=== PATIENT | female | born 1950 | race Caucasian/White ===

== ENCOUNTER 2022-04-19 10:02 | Outpatient (CLI) | payer MEDICARE, SELFPAY ==
--- NOTE | 2022-04-19 10:15 | CRLHL7_ITS ---
For Patients: As a result of the Cures Act, medical imaging exams and procedure reports are released immediately into your electronic medical record. You may view this report before your referring provider. If you have questions, please contact your health care provider. BILATERAL DIGITAL SCREENING MAMMOGRAM WITH COMPUTER-AIDED DETECTION WITH TOMOSYNTHESIS, 04/19/2022 CLINICAL HISTORY: Routine screening exam. COMPARISON: 04/16/2021, 02/22/2020, 11/25/2018, 07/12/2014 TECHNIQUE: Digital mammogram in CC and MLO projections including computer-aided detection (CAD) and Tomosynthesis. BREAST COMPOSITION: There are scattered areas of fibroglandular density FINDINGS: RIGHT Breast: Microlobulated/spiculated lesion within the RIGHT axilla. LEFT Breast: No suspicious findings. IMPRESSION: RIGHT breast asymmetry/mass. RECOMMENDATIONS: RIGHT breast ultrasound recommended. BI-RADS Category 0: Incomplete: Need Additional Imaging Evaluation and/or Prior Mammograms for Comparison The [facility] will contact the patient for follow-up. Dictated by Holger Clayton MD @ 04/19/2022 10:45:46 AM PT/Dictated by: Holger Clayton MD @ 04/19/2022 10:45:00 AM (Electronically Signed)
== END 2022-04-19 10:03 | disposition home or self-care (01) ==
LOC: MAMMO 10:03
PROVIDERS: PCP Family Medicine; Visit Provider Family Medicine
DX: Z12.31 Encounter for screening mammogram for malignant neoplasm of breast (principal); N63.10 Unspecified lump in the right breast, unspecified quadrant
CPT/HCPCS: 77063; 77067

== ENCOUNTER 2022-04-24 10:52 | Outpatient (CLI) | payer MEDICARE, SELFPAY ==
--- NOTE | 2022-04-24 11:15 | CRLHL7_ITS ---
For Patients: As a result of the Century Cures Act, medical imaging exams and procedure reports are released immediately into your electronic medical record. You may view this report before your referring provider. If you have questions, please contact your health care provider. RIGHT BREAST ULTRASOUND CLINICAL HISTORY: RIGHT breast mass/asymmetry. COMPARISON: 04/19/2022. TECHNIQUE: Real-time ultrasound imaging of RIGHT breast with imaging documentation. FINDINGS: Targeted sonogram to the RIGHT axillary tail performed, upper outer quadrant, 10 o`clock 16 cm from the nipple corresponding to the area of concern. In this location there is a taller than wide angular hypoechoic and shadowing solid mass measuring 9 x 7 x 11 millimeters. A normal-appearing RIGHT axillary lymph node is present. IMPRESSION: Suspicious mass RIGHT breast upper outer quadrant 10 o`clock 16 cm from the nipple measuring 9 x 7 x 11 millimeters. RECOMMENDATIONS: Ultrasound-guided core needle biopsy. Results and recommendations were discussed with the patient at the time of the exam. BI-RADS Category 4: Suspicious A lay language report of this examination will be provided to the patient. Dictated by Holger Clayton MD @ 04/24/2022 12:11:43 PM manuelito/Dictated by: Holger Clayton MD @ 04/24/2022 12:11:00 PM (Electronically Signed)
== END 2022-04-24 10:53 | disposition home or self-care (01) ==
LOC: US 10:53
PROVIDERS: PCP Family Medicine; Visit Provider Family Medicine
DX: N63.10 Unspecified lump in the right breast, unspecified quadrant (principal); R92.8 Other abnormal and inconclusive findings on diagnostic imaging of breast
CPT/HCPCS: 76642

== ENCOUNTER 2022-04-26 08:23 | Outpatient (CLI) | payer MEDICARE, SELFPAY ==
--- NOTE | 2022-04-26 08:15 | CRLHL7_ITS ---
For Patients: As a result of the Century Cures Act, medical imaging exams and procedure reports are released immediately into your electronic medical record. You may view this report before your referring provider. If you have questions, please contact your health care provider. Final Report: ULTRASOUND-GUIDED BREAST BIOPSY AND POST-BIOPSY DIGITAL MAMMOGRAM FOR BIOPSY MARKER PLACEMENT CLINICAL HISTORY: Indeterminate lesion RIGHT axillary tail. COMPARISON STUDIES: 04/24/2022 TECHNIQUE: Real-time ultrasound with image documentation was used for targeting the breast lesion. Core biopsy specimens were obtained using an automated gun with a 18- gauge biopsy needle. Post-biopsy CC and ML digital mammograms were obtained to document position of the biopsy marker. CONSENT and TIME OUT: The procedure, risks, and alternatives were explained to the patient and a consent was signed. [place] Protocol was followed including pre-procedure verification that relevant information/documentation was available, reviewed and properly matched to the patient; consent accurate and complete; and equipment and supplies available. Time Out was conducted just prior to starting procedure to verify the four required elements: patient identity, correct side/site marked (if applicable), procedure, relevant images/results properly labeled and displayed (if applicable). PROCEDURE: The patient was positioned supine on the ultrasound table. The breast was prepped with ChloraPrep. 8 cc 1% lidocaine used for local anesthesia. Core samples were obtained. A sterile metal biopsy clip was placed percutaneously to vani the lesion position within the breast. The specimens were placed in 10% formalin and sent to the pathology department. Pressure was held on the biopsy site until all bleeding subsided. The skin incision was closed with Steri- Strips. An ice pack was positioned over the biopsy site. Post-biopsy instructions were reviewed with the patient, and a written copy was given to her. LATERALITY: RIGHT breast. LESION: Hypoechoic mass measuring 9 x 7 x 11 millimeters at 10 o`clock 16 cm from the nipple. SUSPICION FOR MALIGNANCY: High. NUMBER OF SAMPLES: 5. BIOPSY CLIP SHAPE: Coil. PROXIMITY OF CLIP TO TARGET: Clip is within the lesion. IMPRESSION: Ultrasound-guided breast biopsy. When the pathology report is available, an addendum to this report will be made. ACR not applicable Dictated by Holger Clayton MD @ 04/26/2022 10:19:39 AM jj/Dictated by: Holger Clayton MD @ 04/26/2022 10:19:00 AM ----- ADDENDUM ----- Pathology consistent with grade 2/3 invasive ductal carcinoma. This is concordant. Appropriate action recommended. Dictated by Holger Clayton MD @ Apr 26 2022 10:19AM Signed by:?Holger Clayton MD @04/26/2022 11:56:46 AM (Electronic Signature)
--- NOTE | 2022-04-26 08:45 | CRLHL7_ITS ---
For Patients: As a result of the Century Cures Act, medical imaging exams and procedure reports are released immediately into your electronic medical record. You may view this report before your referring provider. If you have questions, please contact your health care provider. PLEASE SEE ULTRASOUND-GUIDED RIGHT BREAST BIOPSY PERFORMED SAME DAY CRL:[email or web address] lane/Dictated by: Holger Clayton MD @ 04/26/2022 10:19:00 AM (Electronically Signed)
== END 2022-04-26 08:24 | disposition home or self-care (01) ==
LOC: US 08:24
PROVIDERS: PCP Family Medicine; Visit Provider Family Medicine
DX: N63.10 Unspecified lump in the right breast, unspecified quadrant (principal); C50.911 Malignant neoplasm of unspecified site of right female breast; R92.8 Other abnormal and inconclusive findings on diagnostic imaging of breast
CPT/HCPCS: 19083; 77065; 88305; 88341; 88342; 88360; 88361; A4648; A4649; G0279; J2001

== ENCOUNTER 2022-05-16 09:13 | Outpatient (CLI) | payer MEDICARE, SELFPAY ==
--- NOTE | 2022-05-16 09:15 | CRLHL7_ITS ---
For Patients: As a result of the 21st Century Cures Act, medical imaging exams and procedure reports are released immediately into your electronic medical record. You may view this report before your referring provider. If you have questions, please contact your health care provider. BILATERAL BREAST MRI WITHOUT AND WITH GADOLINIUM CLINICAL HISTORY: 72-year-old woman with newly diagnosed RIGHT breast invasive ductal carcinoma. Ultrasound-guided biopsy of a 1.1 cm hypoechoic mass in the upper outer RIGHT breast. INDICATION FOR BREAST MRI: Staging of newly diagnosed breast cancer and screening of contralateral breast. Regional lymph nodes will also be assessed. COMPARISON STUDIES: Mammogram 04/26/2022, ultrasound 04/24/2022, ultrasound biopsy 04/26/2022. CONTRAST: 15 cc Dotarem. TECHNIQUE: The patient was positioned prone using a breast coil. Multiple imaging sequences were obtained using 1-1.5 mm thick slices with no gap. The image sequences include T2-weighted STIR in the axial plane, T1-weighted nonfat-saturated gradient echo in the axial plane, pre- and post-contrast T1-weighted FLASH 3D with fat suppression in the axial plane, and T1-weighted FLASH high-resolution 3D with fat suppression in the sagittal plane. Image post-processing was performed on a [employer] workstation. Complex 3D rendering including maximum intensity projections (MIPS) and volumetric renderings were obtained to optimize visualization of the extent of pathology and relationship to the nipple, skin, and chest wall. This aids in determining feasibility of breast conservation surgery. Subtraction, multiplanar reconstruction, mean curve determination, and angiogenesis mapping were also performed. The study was technically adequate. FINDINGS: Amount of Fibroglandular Tissue: Scattered fibroglandular tissue. Breast Background Enhancement: Mild. RIGHT Breast: Irregular mass enhancement posterior upper outer RIGHT breast measuring approximately 1.3 x 1.4 x 0.9 cm, corresponding to the biopsy-proven malignancy. There is a clip associated with this enhancement. No suspicious enhancement elsewhere RIGHT breast. LEFT Breast: There is a circumscribed oval mildy enhancing mass in the posterior inferior LEFT breast approximately 6 o`clock 14 cm from the nipple. Lymph Nodes: Axillary lymph nodes grossly normal. No lymphadenopathy. IMPRESSIONS AND RECOMMENDATIONS: 1. Irregular mass enhancement posterior upper outer RIGHT breast measuring 1.4 cm in greatest dimension, correlates with the biopsy-proven malignancy. No evidence for malignancy elsewhere RIGHT breast. 2. Oval mass enhancement inferior LEFT breast 6 o`clock 14 cm from the nipple. Ultrasound evaluation is recommended. 3. Axillary lymph nodes appear preserved. The [facility] will contact the patient for follow-up. BI-RADS: BI-RADS Category 0: Incomplete - Need Additional Imaging Evaluation Cristal Collazo M.D. Breast/Body Radiologist [email or web address] DARWIN/Dictated by: Cristal Collazo MD @ 05/17/2022 11:57:00 AM (Electronically Signed)
== END 2022-05-16 09:14 | disposition home or self-care (01) ==
PROVIDERS: PCP Family Medicine; Visit Provider Surgery
DX: C50.911 Malignant neoplasm of unspecified site of right female breast (principal); N63.10 Unspecified lump in the right breast, unspecified quadrant; N63.20 Unspecified lump in the left breast, unspecified quadrant
CPT/HCPCS: 77049; A9575

== ENCOUNTER 2022-05-31 09:54 | Outpatient (CLI) | payer MEDICARE, SELFPAY ==
--- NOTE | 2022-05-31 10:15 | CRLHL7_ITS ---
For Patients: As a result of the Century Cures Act, medical imaging exams and procedure reports are released immediately into your electronic medical record. You may view this report before your referring provider. If you have questions, please contact your health care provider. ULTRASOUND-GUIDED BREAST BIOPSY AND POST-BIOPSY DIGITAL MAMMOGRAM FOR BIOPSY MARKER PLACEMENT CLINICAL HISTORY: RIGHT breast cancer. Enhancing lesion LEFT breast MRI. COMPARISON STUDIES: MRI 05/16/2022. TECHNIQUE: Real-time ultrasound with image documentation was used for targeting the breast lesion. Core biopsy specimens were obtained using an automated gun with a 18-gauge biopsy needle. Post-biopsy CC and ML digital mammograms were obtained to document position of the biopsy marker. CONSENT and TIME OUT: The procedure, risks, and alternatives were explained to the patient and a consent was signed. [place] Protocol was followed including pre-procedure verification that relevant information/documentation was available, reviewed and properly matched to the patient; consent accurate and complete; and equipment and supplies available. Time Out was conducted just prior to starting procedure to verify the four required elements: patient identity, correct side/site marked (if applicable), procedure, relevant images/results properly labeled and displayed (if applicable). PROCEDURE: The patient was positioned supine on the ultrasound table. The breast was prepped with ChloraPrep. 10 cc 1 percent lidocaine used for local anesthesia. Core samples were obtained. A sterile metal biopsy clip was placed percutaneously to vani the lesion position within the breast. The specimens were placed in 10% formalin and sent to the pathology department. Pressure was held on the biopsy site until all bleeding subsided. The skin incision was closed with Steri-Strips. An ice pack was positioned over the biopsy site. Post-biopsy instructions were reviewed with the patient, and a written copy was given to her. LATERALITY: LEFT breast. LESION: Hypoechoic circumscribed solid nodule posterior depth left breast 5 o`clock 14 cm from the nipple corresponding to the MRI measuring 1.3 x 0.8 cm. SUSPICION FOR MALIGNANCY: Low, probable fibroadenoma. NUMBER OF SAMPLES: 5. BIOPSY CLIP SHAPE: Coil. PROXIMITY OF CLIP TO TARGET: Within the lesion. IMPRESSION: Ultrasound-guided breast biopsy. When the pathology report is available, an addendum to this report will be made. ACR not applicable Dictated by Holger Clayton MD @ 05/31/2022 12:15:20 PM jj/Dictated by: Holger Clayton MD @ 05/31/2022 12:15:00 PM ----- ADDENDUM ----- Addendum: Pathology consistent with benign fibroadenoma. No evidence of malignancy. This is concordant. Dictated by Holger Clayton MD @ May 31 2022 12:15PM Signed by:?Holger Clayton MD @05/31/2022 1:04:40 PM (Electronically Signed)
--- NOTE | 2022-05-31 10:45 | CRLHL7_ITS ---
For Patients: As a result of the Century Cures Act, medical imaging exams and procedure reports are released immediately into your electronic medical record. You may view this report before your referring provider. If you have questions, please contact your health care provider. PLEASE SEE ULTRASOUND-GUIDED LEFT BREAST BIOPSY PERFORMED SAME DAY CRL:[email or web address] lane/Dictated by: Holger Clayton MD @ 05/31/2022 12:15:00 PM (Electronically Signed)
== END 2022-05-31 09:55 | disposition home or self-care (01) ==
LOC: US 09:54
PROVIDERS: PCP Family Medicine; Visit Provider Family Medicine
DX: N63.23 Unspecified lump in the left breast, lower outer quadrant (principal); D24.2 Benign neoplasm of left breast; C50.911 Malignant neoplasm of unspecified site of right female breast; Z17.0 Estrogen receptor positive status [ER+]
CPT/HCPCS: 19083; 77065; 88305; A4648; A4649

== ENCOUNTER 2022-06-25 09:41 | Outpatient (CLI) | payer MEDICARE, SELFPAY ==
[2022-06-25 14:06] LABS: Chloride* 99 mmol/L (96-114); Potassium* 4.2 mmol/L (3.6-5.1); Sodium* 136 mmol/L (135-149)
[2022-06-25 14:09] LABS: Blood Urea Nitrogen* 21 mg/dL (7-30); Calcium* 9.8 mg/dL (8.4-10.6); Carbon Dioxide* 30 mmol/L (20-32); Creatinine* 0.9 mg/dL (0.5-1.5); Estimated Glomerular Filt Rate 67 ml/min; Glucose* 141 mg/dL (60-115)
== END 2022-06-25 09:42 | disposition home or self-care (01) ==
LOC: NFLDREF 09:42
PROVIDERS: PCP Family Medicine; Visit Provider Family Medicine
DX: Z01.818 Encounter for other preprocedural examination (principal)
CPT/HCPCS: 80048

== ENCOUNTER 2022-06-27 09:11 | Day surgery (SDC) | payer MEDICARE, SELFPAY ==
[2022-06-27] VITALS (22 sets, daily range): BP systolic 123–172; BP diastolic 51–94; PULSE 57–75; RESP 10–16; TEMP 36.1–36.8; O2SAT 92–98; BMI 36.1
[2022-06-27] MEDS: LACTATED RINGERS 1000 ML 1,000 ML 100 ML IV ×2 (10:00→11:57)
[2022-06-27 10:01] LABS: Basophils Absolute Auto 0.03 K/uL (0.00-0.30); Basophils Percent Auto 0.5 % (0.0-3.0); Eosinophils Absolute Auto 0.18 K/uL (0.00-0.50); Eosinophils Percent Auto 2.8 % (0.0-7.0); Hematocrit 42.8 % (33.0-51.0); Hemoglobin* 14.6 gm/dL (12.0-16.0); Immature Granulocytes Abs Auto 0.03 K/uL (0.00-0.30); Lymphocytes Absolute Auto 2.55 K/uL (0.90-2.90); Lymphocytes Percent Auto 39.8 % (20-44); Mean Corpuscular HGB Conc 34 gm/dL (32-36); Mean Corpuscular Hemoglobin 33 pg (26-34); Mean Corpuscular Volume 97 fL (80-100); Monocytes Percent Auto 6.7 % (0.0-11.0); Neutrophils Absolute Auto 3.18 K/uL (1.7-7.0); Neutrophils Percent Auto 49.7 % (42.0-72.0); Platelet Count* 258 K/uL (140-440); RDW Coefficient of Variation % 12.1 % (11.5-15.5); Red Blood Count 4.42 m/uL (4.00-5.20)
[2022-06-27] MEDS: ETHYL CHLORIDE 1 APPLICATION 1 APPLIC TOPICAL (10:02)
[2022-06-27] MEDS: SODIUM CHLORIDE 0.9 % (FLUSH) 10 ML SYRINGE IVF (10:02)
[2022-06-27 10:04] LABS: Slide Review Reflex No
--- NOTE | 2022-06-27 10:30 | CRLHL7_ITS ---
For Patients: As a result of the Century Cures Act, medical imaging exams and procedure reports are released immediately into your electronic medical record. You may view this report before your referring provider. If you have questions, please contact your health care provider. HISTORY: 72-year-old female. Right breast cancer. TECHNIQUE: 500 microcuries of [id number] sulfur colloid was injected in the right breast for sentinel lymph node localization. Images were not obtained. Dictated by Balwinder Jonas MD @ 06/27/2022 10:54:56 AM (Electronically Signed)
[2022-06-27] MEDS: ISOSULFAN BLUE 5 ML VIAL 3 ML INJECTION (11:35)
--- NOTE | 2022-06-27 11:44 | P.NB_ITS ---
Nerve Block Nerve Block Date Seen: 06/27/22 Type of block requested by surgeon for post-operative analgesia: intercostal (PECS 1&2) and intercostal add on Side: bilateral Time out performed: Yes Verification of patient name: Yes Verification of date of : Yes Site marking: site marked Name of person performing procedure: Zaid Continuous monitoring Was continuous monitoring of O2 sat, B/P, quality assurance monitor, recorded every 15 minutes?: Yes Procedure Checklist: sterile prep, needles and gloves Ultrasound guided. Images saved: Yes Medications given in 5ml increments after negative aspiration: Marcaine %: 0.25 mL: 30 Needle gauge: 20 and Exparel mL: 20 Needle gauge: 20 Patient tolerated procedure well: Yes Block Charges Block Charge (with Pro Fee): Intercostal Nerve Block (Bilateral) Use of Ultrasound Machine for Block: Yes- US Guidance/pain block
[2022-06-27] MEDS: CEFAZOLIN 2 GM INJ IVP (11:45)
--- NOTE | 2022-06-27 12:21 | SUR.OPER ---
PATIENT QUESTIONS ANSWERED SATISFACTORILY PREOPERATIVELY.? PATIENT BROUGHT TO OR #3 PER CART.? Patient positioned supine on OR #3 bed. The perioperative?team supported arms bilaterally on arm boards.? Final approval of positioning by surgeon.? PRIOR TO ISOSULFAN BLUE INJECTION A TIME OUT WAS PERFORMED AT 11:34.
--- NOTE | 2022-06-27 12:32 | W.ANESCHARGE ---
Anesthesia Charges Start Date/Time Anesthesia Start Date: 06/27/22 Anesthesia Start Time: 11:13 Stop Date/Time Anesthesia Stop Date: 06/27/22 Summary Emergency: No Extremes of Age: Over 68-CPT [id number]
--- NOTE | 2022-06-27 14:09 | SUR.OPER ---
PT. FAMILY UPDATED BY PHONE CALL AT 13:26.
--- NOTE | 2022-06-27 14:55 | P.GSOP_ITS ---
Operative Note Date of procedure: 06/27/22 Type of Procedure: 1. Bilateral mastectomy 2. Right axillary sentinel lymph node biopsy Procedure Description: After discussing the risks and benefits of the procedure, the patient signed informed consent.? The operative site was marked. 40 Minutes prior to the procedure, I injected 500 microcuries of [id number] sulfur colloid into the dermis just above the nipple- areolar complex for the sentinel lymph node biopsy. This was massaged in place to promote lymphatic drainage. . The patient was brought to the operating room and placed on the operating table in supine position.? Care was taken to pad the patient's pressure points.?? The patient was then intubated by anesthesia.?3 ml Isosulfan Blue dye was then injected into the dermis just above the nipple-areolar complex and massaged in place. This was done 10 minutes before the incision.? The operative site was then prepped and draped in the usual sterile fashion.? A time-out was then performed. The planned oblique elliptical incisions were then marked on each breast to ensure symmetry. We began on the patient's right. The incision was then created using a skin knife. I created skin flaps by dissecting in the avascular plane between the subcutaneous fat and breast tissue. These were created superiorly to the clavicle, medially to the lateral border of the sternum, inferiorly to include the inframammary fold and superior aspect of the rectus sheath and finally laterally to the latissimus muscle. This was done with cautery. During the lateral dissection, the area that appeared to be the tumor was encountered. This seemed quite adherent to the skin, however I was able to find a plane that appeared free of tumor. I did place a marking stitch on the skin flap where this area was as well as on the breast itself so that pathology would be able to identify it to determine if the margin was negative. Small bleeding vessels were cauterized or ligated with suture when necessary. Once this was done, the breast was taken off the chest wall using cautery with care to include the pectoral fascia. The axillary fat was encountered. I divided the breast tissue and placed a single marking stitch at the superior aspect for identification. I then performed the sentinel lymph node biopsy through the mastectomy incision. Using the Neoprobe, I identified a sentinel lymph node. It was blue. It was dissected out using electrocautery. Clips were placed on any visible lymphatic pedicles. The lymph node had an ex vivo reading of 1600 and was sent to pathology for frozen section as sentinel lymph node number 1. The probe was vcítor jose guadalupe back into the axilla and there was still a strong signal. An additional blue node was identified. This was again dissected out using cautery. A reading of 1400 was noted. This was sent for frozen section as [place] Lymph node number 2. There was still signal in the axilla and two additional nodes with a signal but which were not blue were identified and dissected out. These measured 200 and 800. After these were removed and sent as sentinel node number 3 and 4, there was noted to be no further signal with the neoprobe and no further blue lymph nodes. Hemostasis appeared excellent at the end of this portion of the procedure. We then changed gloves and instruments and turned our attention to the left side. The incision was then created using a skin knife. I created skin flaps by dissecting in the avascular plane between the subcutaneous fat and breast tissue. These were created superiorly to the clavicle, medially to the lateral border of the sternum, inferiorly to include the inframammary fold and superior aspect of the rectus sheath and finally laterally to the latissimus muscle. This was done with cautery. Small bleeding vessels were cauterized or ligated with suture when necessary. Once this was done, the breast was taken off the chest wall using cautery with care to include the pectoral fascia. A stitch was placed marking the superior aspect of the specimen and this was sent to pathology. Hemostasis appeared excellent. A 15 hebrew Luis Alfredo drain was then placed in the chest wound and secured in place with Nylon suture. The skin was then closed with 3-0 Vicryl dermal and 4-0 Monocryl running subcuticular suture. By this time, the pathology returned. The margins on the breast were grossly negative, however by only a 2 mm margin. For this reason, I elected to remove a portion of the skin overlying the tumor. At this time the sentinel lymph nodes were reported as negative on frozen section. I created a V-shaped incision on the superior aspect lateral flap toward the axilla to encompass the area where the tumor had abutted (marked with a suture). The specimen was sent to pathology as re-excision lateral margin with a stitch marking both the area of the tumor and the anterior aspect of the specimen for orientation. Once this was done, a 15 Sami Luis Alfredo drain was then placed in the wound bed. This was secured in place with nylon suture. The skin was then closed with 3 0 Vicryl dermal and 4 0 Monocryl running subcuticular suture. Sterile dressings were applied. The patient was then woken and transported to the recovery area in stable co ndition. ? The patient tolerated the procedure well. Findings: 1) Close margins on right breast tumor which abutted the skin. Margin of skin on the lateral aspect of the breast was reexcised 2) [place] lymph nodes x4 negative. Anesthesia: GETA Surgeon: Brittny Mcgraw MD Estimated blood loss (mL): 50 Condition: stable Disposition: PACU
--- NOTE | 2022-06-27 15:13 | W.ANESCHARGE ---
Anesthesia Charges Start Date/Time Anesthesia Start Date: 06/27/22 Anesthesia Start Time: 11:13 Stop Date/Time Anesthesia Stop Date: 06/27/22 Anesthesia Stop Time: 15:10 Summary Emergency: No Extremes of Age: Over 68-CPT 65005
--- NOTE | 2022-06-27 15:16 | W.ANESCHARGE ---
Anesthesia Charges Start Date/Time Anesthesia Start Date: 06/27/22 Anesthesia Start Time: 11:13 Stop Date/Time Anesthesia Stop Date: 06/27/22 Anesthesia Stop Time: 15:10 Summary Emergency: No Extremes of Age: Over 68-CPT 17542
[2022-06-27] MEDS: LACTATED RINGERS 1000 ML 1,000 ML 75 ML IV (15:45)
[2022-06-27] MEDS: HYDROCODONE-ACETAMIN 5-325 MG 1 TAB PO (19:49)
[2022-06-27] MEDS: PRAVASTATIN SODIUM 20 MG TABLET PO (20:44)
--- NOTE | 2022-06-27 22:51 | PC.NURSE ---
End of Shift note: Pt. up to floor at 1545. Dressing to breast is C/D/I. Bilateral NASIM drain is patent, draining serosanguineous fluid. Pt. alert and oriented x4, pleasant and cooperative. Pt. rated pain 0/10 until 1949 pain was 4/10 1 tab of PRN [place] administered w/relief. Pt. tolerating ice chips, water, food. Pt. denies N/V/SOB and pt. is afebrile. Pt. met 6 hr goals, voided x2. Pt. has bilateral Teds and bilateral calf SCD's. Pt. encouraged to use IO. Pt. saline blessing, MD Anam azul nurse to saline lock.
[2022-06-28] MEDS: HYDROCODONE-ACETAMIN 5-325 MG 1 TAB PO (02:55)
[2022-06-28 03:00] VITALS: BP 121/59; PULSE 60; RESP 16; TEMP 36.7; O2SAT 96
--- NOTE | 2022-06-28 06:06 | PC.NURSE ---
259 END OF SHIFT NOTE: PT IS PLEASANT, CALM AND COOPERATIVE. AMBULATES WITHIN ROOM INDEPENDENTLY. VSS ON RA; AFEBRILE. VOIDING BLUE/GREEN URINE. A&Ox4. RATES BREAST PAIN 4/10 WITH MOVEMENT; RELIEF FROM PRN PAIN MED ADMINISTRATION (SEE MAR).?BILATERAL NASIM DRAINS PATENT WITH 40MLS OF SANGUINEOUS DRAINAGE THIS SHIFT.
[2022-06-28 07:00] VITALS: BP 168/83; PULSE 64; RESP 12; TEMP 37.2; O2SAT 94
[2022-06-28 07:35] LABS: Hemoglobin* 12.7 gm/dL (12.0-16.0)
--- NOTE | 2022-06-28 09:11 | PM.DS1 ---
DS: Providers Provider Date Seen: 06/28/22 Primary care physician: Otoniel Pichardo MD Attending Physician on discharge: Brittny Mcgraw MD Date of Discharge: 06/28/22 DS: Diagnosis Discharge Diagnosis (1) Breast cancer, right: Status: Acute Problem details: Right breast invasive ductal carcinoma, ERPR positive, HER2 negative (2) Simple obesity: Status: Acute (3) Health care directive on file: Status: Acute (4) Hypertension: Status: Acute (5) Hyperlipidemia: Status: Acute DS: Summary Hospital Course Hospital Course: The patient is a 72-year-old female who was admitted after bilateral mastectomy with right axillary sentinel node biopsy. She did well overnight. Pain was well controlled. She was deemed safe for discharge home on postop day 1. Time Spent with Patient Time attestation: Total time spent providing and/or coordinating discharge services: Exam Narrative: Exam Narrative: General: No acute distress CV: Regular rate and rhythm Respiratory: Breathing nonlabored on room air Chest: Incisions without erythema. Some ecchymosis noted on skin flaps are. Serosanguineous fluid in the drains. 90 mL total out between the 2 drinks. Const: Vital Signs, click to edit/add: Vital Signs - 24 hr 06/27/22 09:43 06/27/22 15:08 06/27/22 15:15 Temperature 97.1 F L 97.8 F Pulse Rate 63 69 68 Pulse Rate [Right Pulse Oximeter] Respiratory Rate 16 12 12 Blood Pressure 172/94 H 138/66 147/70 H Blood Pressure [Le ft Arm] Blood Pressure [Ri ght Calf] Pulse Oximetry 95 97 97 Oxygen Delivery Me thod Room Air Room Air Room Air 06/27/22 15:20 06/27/22 15:25 06/27/22 15:30 Temperature Pulse Rate 70 67 65 Pulse Rate [Right Pulse Oximeter] Respiratory Rate 10 L 12 16 Blood Pressure 148/68 H 149/73 H 154/74 H Blood Pressure [Le ft Arm] Blood Pressure [Ri ght Calf] Pulse Oximetry 95 94 94 Oxygen Delivery Me thod Room Air Room Air Room Air 06/27/22 15:35 06/27/22 15:40 06/27/22 15:51 Temperature 96.9 F L Pulse Rate 68 66 Pulse Rate [Right Pulse Oximeter] 58 L Respiratory Rate 14 14 16 Blood Pressure 157/73 H 163/74 H Blood Pressure [Le ft Arm] 145/67 H Blood Pressure [Ri ght Calf] Pulse Oximetry 96 95 98 Oxygen Delivery Me thod Room Air Room Air Room Air 06/27/22 15:45 06/27/22 16:00 06/27/22 16:15 Temperature 96.9 F L 97.6 F 97.6 F Pulse Rate 58 L Pulse Rate [Right Pulse Oximeter] 64 63 Respiratory Rate 16 16 16 Blood Pressure Blood Pressure [Le ft Arm] 146/68 H Blood Pressure [Ri ght Calf] 145/67 H 146/68 H 155/72 H Pulse Oximetry 95 96 Oxygen Delivery Me thod Room Air Room Air Room Air 06/27/22 16:30 06/27/22 16:45 06/27/22 17:15 Temperature 97.6 F 97.6 F 97.6 F Pulse Rate Pulse Rate [Right Pulse Oximeter] 66 63 66 Respiratory Rate 16 16 16 Blood Pressure Blood Pressure [Le ft Arm] Blood Pressure [Ri ght Calf] 156/82 H 167/81 H 166/85 H Pulse Oximetry 93 95 95 Oxygen Delivery Me thod Room Air Room Air Room Air 06/27/22 17:45 06/27/22 18:00 06/27/22 19:11 Temperature 97.6 F 97.6 F 98.0 F Pulse Rate Pulse Rate [Right Pulse Oximeter] 70 74 74 Respiratory Rate 16 16 16 Blood Pressure Blood Pressure [Le ft Arm] Blood Pressure [Ri ght Calf] 170/88 H 159/81 H 138/72 Pulse Oximetry 92 94 94 Oxygen Delivery Me thod Room Air Room Air Room Air 06/27/22 19:00 06/27/22 20:00 06/27/22 21:00 Temperature 98.0 F 98.0 F 98.0 F Pulse Rate Pulse Rate [Right Pulse Oximeter] 74 75 75 Respiratory Rate 16 16 16 Blood Pressure Blood Pressure [Le ft Arm] Blood Pressure [Ri ght Calf] 138/72 150/82 H 147/81 H Pulse Oximetry 94 93 94 Oxygen Delivery Me thod Room Air Room Air Room Air 06/27/22 23:00 06/27/22 23:00 06/28/22 03:00 Temperature 98.3 F 98.0 F Pulse Rate Pulse Rate [Right Pulse Oximeter] 57 L 57 L 60 Respiratory Rate 16 16 16 Blood Pressure Blood Pressure [Le ft Arm] Blood Pressure [Ri ght Calf] 123/51 L 121/59 L Pulse Oximetry 94 96 Oxygen Delivery Me thod Room Air Room Air DS: Data Data Completed and Pending Labs on day of discharge: Labs from last 24 hours 06/28/22 06/27/22 06:56 09:39 WBC 6.40 RBC 4.42 Hgb 12.7 14.6 Hct 42.8 MCV 97 MCH 33 MCHC 34 RDW Coeff of Arleen 12.1 Plt Count 258 Neut % (Auto) 49.7 Lymph % (Auto) 39.8 [place] % (Auto) 6.7 Eos % (Auto) 2.8 Baso % (Auto) 0.5 Neut # (Auto) 3.18 Lymph # (Auto) 2.55 [place] # (Auto) 0.40 Eos # (Auto) 0.18 Baso # (Auto) 0.03 Abs Immat Gran (auto) 0.03 Discharge Plan Discharge Disposition: Home, Self-Care Discharging Surgeon: Brittny Mcgraw Follow-Up Appointment: Jul 08 Prescriptions: New hydrocodone-acetaminophen 5-325 mg Tablet 1 tab PO Q6H PRN (Reason: Pain) Qty: 20 0RF Continued metoprolol succinate 25 mg tablet extended release 24 hr 25 mg PO DAILY losartan 100 mg tablet 100 mg PO DAILY triamterene-hydrochlorothiazid 37.5-25 mg capsule 1 cap PO DAILY multivitamin Tablet 1 tab PO DAILY amlodipine 2.5 mg tablet 2.5 mg PO QDAY Qty: 30 2RF Hold Instructions: START AFTER SURGERY pravastatin 20 mg tablet 20 mg PO HS Activity Level: No strenuous activity Activity Detail: No lifting > 20 lbs x 4 weeks Discharge Diet: Regular Patient Instructions: Surgical Site Infections (DC), Mastectomy (GEN) Additional Instructions: Wound care: Your sutures are under the skin and will dissolve over time. Leave steri strips (white bandages) over incisions until they fall off (or remove after 7 days). OK to shower tomorrow but avoid bathing, soaking or swimming for 2 weeks. Pat the incisions dry. No need to wash or scrub the area. Cover drain sites with saran wrap during shower. Apply ice to the area as needed for swelling. It is also OK to use a heating pad if this provides more comfort to you. Empty and record drain output daily. Bring this information with you to your appointment to Dr. Mcgraw Rewrap chest with KRISTINE bandage until drains are removed. Pain control: You were prescribed a pain medication. This medication contains acetaminophen (Tylenol). If you are taking your prescribed pain pills 4 times daily, do not take additional acetaminophen. As your pain improves, you can try taking acetaminophen instead of the prescribed pain pill. It is ok to take Ibuprofen or Naproxen (per directions on packaging). This medication helps with inflammation and swelling. Take an [id number]-[id number] stool softener while you are taking prescribed pain medications to help alleviate constipation. I recommend Senna and/or Colace. Take as directed on package. If you have not had a bowel movement in 3 days, try taking Miralax as directed on the package. All of these are available over the counter. Follow-up Follow up with Dr. Mcgraw on Jul 08. Please call if you are experiencing severe pain, nausea, vomiting, difficulty urinating, fever or have not had bowel movement in 4 days after surgery. Forms: Work/Release Restrictions Follow-up: Otoniel Pichardo MD [Primary Care Provider] - Discharge Orders: Discharge Order (Routine); Ordered 06/28/22 Ordered By: Brittny Mcgraw
[2022-06-28] MEDS: TRIAMTERENE-HCTZ 37.5-25 MG TB 1 TAB PO (10:26)
[2022-06-28] MEDS: LOSARTAN POTASSIUM 50 MG TABLET 100 MG PO (10:26)
[2022-06-28] MEDS: METOPROLOL SUCCINATE (XL) 25 MG TAB PO (10:27)
--- NOTE | 2022-06-28 15:25 | PC.NURSE ---
care time [id number] pt this shift up in chair finishing breakfast upon arrival. Pt denies pain in bilat surgical sites. CMS intact, small amount of serous fluid in bilat NASIM drains. DC'd for home at 1130. Pt and spouse educated on how to strip and drain fluid from NASIM drains. Taught to hold the proximal end with one hand and pull distally with the other, keeping pressure on the tubing so fluid runs into bulb while also preventing pulling on the incision site. Taught how to measure each side and record separately for follow up. Educated on keeping hands clean while performing dressing changes and managing NASIM drains. Pt and spouse performed technique with nurse observing and giving direction. Discharge work gone over with pt and spouse, all questions and concerns answered. Pt ambulated out in stable condition.
== END 2022-06-28 11:30 | disposition home or self-care (01) ==
LOC: OR 09:12 → MEDSURG 09:17
PROVIDERS: PCP Family Medicine; Visit Provider Surgery
PROC: (CPT 19303; principal; 2022-06-27 11:30)
DX: C50.911 Malignant neoplasm of unspecified site of right female breast (principal); Z17.0 Estrogen receptor positive status [ER+]; D24.2 Benign neoplasm of left breast; E78.5 Hyperlipidemia, unspecified; E66.9 Obesity, unspecified; I10 Essential (primary) hypertension
CPT/HCPCS: 19303; 38500; 36415; 38792; 400; 404; 64420; 76942; 85018; 85025; 99100; A9270; A9541; J0690; J2250; J2704; J3010; J7120

== ENCOUNTER 2022-08-08 13:28 | Outpatient (CLI) | payer MEDICARE, SELFPAY ==
--- NOTE | 2022-08-08 13:30 | CRLHL7_ITS ---
For Patients: As a result of the Century Cures Act, medical imaging exams and procedure reports are released immediately into your electronic medical record. You may view this report before your referring provider. If you have questions, please contact your health care provider. DXA BONE MINERAL DENSITY STUDY Reason for exam: Breast cancer. Current height (in): 65.5. Weight (lb): 204. Menopause age: 50. Ethnicity: White 1. Have you had a previous hip or vertebral fracture? No. 2. Have you had any fractures during your adult life which did not result from significant trauma (e.g., auto accident)? No. 3. Did either of your parents have a hip fracture? No. 4. Do you smoke? No. 5. Have you ever taken Glucocorticoids? No. 6. Do you have rheumatoid arthritis? No. 7. Do you have secondary osteoporosis? No. 8. Do you drink 3 or more alcoholic drinks per day? No. 9. Are you being treated for osteoporosis? No. 10. Have you ever taken any of the following medications: Actonel, Evista, Fosamax, Miacalcin, Reclast, Boniva, Forteo, HRT (i.e., estrogen/hormone therapy), Protelos, Prolia, Vitamin D, Calcium, other ??? please specify. ANSWER: Yes, vitamin D and calcium. 11. Do you have any of the following medical conditions: Anorexia or bulimia, asthma or emphysema, end stage renal disease, hyperparathyroidism, any seizure disorders, cancer, inflammatory bowel diseases, hysterectomy, other ??? please specify. ANSWER: Yes, cancer. 12. What was your maximum height (inches)? 66. 13. Do you perform weight bearing exercise regularly? No. 14. Do you regularly consume dairy products? Yes. 15. Do you drink caffeinated beverages? Yes. If female: 16. At what age did your period start? 13. 17. Are you premenopausal? No. 18. How many full-term pregnancies have you had? 3. 19. Have you ever missed your period for more than 6 months in a row (not including or menopause)? No. TECHNIQUE: Bone mineral density study was performed using the [employer]. FINDINGS: The results of the study expressed as bone mineral density (BMD) are as follows: Lumbar spine L1 to L4: BMD: 1.096 g/cm2. T-score: 0.4. Z-score: 2.8 Neck Left: BMD: 0.789 g/cm2. T-score: -0.5. Z-score: 1.5 Right: BMD: 0.778 g/cm2. T-score: -0.6. Z-score: 1.4 Total Left: BMD: 0.955 g/cm2. T-score: 0.1. Z-score: 1.8 Right: BMD: 0.879 g/cm2. T-score: -0.5. Z-score: 1.2 IMPRESSION: Normal bone density. *Comparison exams done prior to 02/2020 were performed on different unit, [employer]. COMPARISON: Compared with scan of 07/22/2013, the bone mineral density has increased by 1.8 percent at the spine and increased by 4.8 percent at the hip. Holger Clayton M.D. Diagnostic Radiologist [email or web address] BRIELLE/ariana lane/Dictated by: Holger Clayton MD @ 08/09/2022 12:22:00 PM (Electronically Signed)
== END 2022-08-08 13:29 | disposition home or self-care (01) ==
LOC: RAD 13:28
PROVIDERS: PCP Family Medicine; Visit Provider Internal Medicine Hematology & Oncology
DX: C50.911 Malignant neoplasm of unspecified site of right female breast (principal); Z79.811 Long term (current) use of aromatase inhibitors
CPT/HCPCS: 77080

== ENCOUNTER 2022-08-29 07:38 | Outpatient (CLI) | payer MEDICARE, SELFPAY ==
[2022-08-29 10:37] LABS: Chloride* 102 mmol/L (96-114)
[2022-08-29 10:38] LABS: Potassium* 4.2 mmol/L (3.6-5.1); Sodium* 137 mmol/L (135-149)
[2022-08-29 10:40] LABS: Aspartate Amino Transferase* 25 U/L (12-35); Bilirubin Total* 1.2 mg/dL (0.1-1.5); Blood Urea Nitrogen* 21 mg/dL (7-30); Carbon Dioxide* 30 mmol/L (20-32); Cholesterol* 134 mg/dL (90-199); Creatinine* 0.9 mg/dL (0.5-1.5); Estimated Glomerular Filt Rate 67 ml/min; Total Protein* 6.5 g/dL (6.0-8.3)
[2022-08-29 10:41] LABS: Alanine Aminotransferase* 26 U/L (4-35); Alkaline Phosphatase* 73 U/L (40-150); Calcium* 9.5 mg/dL (8.4-10.6); Glucose* 103 mg/dL (60-115); HDL Cholesterol* 39 mg/dL (>=50); LDL Cholesterol Calculated 50 mg/dL (<100); Triglycerides* 224 mg/dL (40-149)
== END 2022-08-29 07:39 | disposition home or self-care (01) ==
PROVIDERS: PCP Family Medicine; Visit Provider Family Medicine
DX: E78.5 Hyperlipidemia, unspecified (principal); I10 Essential (primary) hypertension
CPT/HCPCS: 80053; 80061

== ENCOUNTER 2022-08-30 09:10 | Outpatient (CLI) | payer MEDICARE, SELFPAY | END 2022-08-30 09:11 | disposition home or self-care (01) | PROVIDERS: PCP Family Medicine; Visit Provider Internal Medicine | DX: Z12.11 Encounter for screening for malignant neoplasm of colon (principal); K63.5 Polyp of colon; K57.30 Diverticulosis of large intestine without perforation or abscess without bleeding; Z86.010 Personal history of colon polyps | CPT/HCPCS: 45380; 88305; J2250; J3010 ==

== ENCOUNTER 2022-10-24 09:46 | Outpatient (RCR) | payer MEDICARE, SELFPAY ==
--- NOTE | 2022-07-23 11:12 | PC.NURSE ---
Called patient with the results of her Oncotype testing. Patient informed that her score was 12. Explained that based on this score, she would not benefit from chemotherapy. Per Dr. Golden, patient can begin endocrine therapy. Patient informed that an Rx for Anastrozole will be called to her pharmacy by Jenny Luevano APRN. Side effects reviewed. Reiterated with patient that she will take this medication daily for a minimum of 5 years. Patient will have her baseline Dexa scan 08/08. 3 month follow up scheduled. Patient encouraged to call with any questions or concerns.
--- NOTE | 2022-08-16 12:14 | ONC.NURNOTE ---
Order for post mastectomy supplies faxed to [facility] in [place] at the request of patient.
--- NOTE | 2022-08-23 11:52 | ONC.NURNOTE ---
Call to patient in follow up to new start Anastrozole. Patient states she is tolerating it well. She does note intermittent hot flashes, 1-2 per day but states it is manageable. Patient denies any other questions or concerns. Patient will see her oncology team in October.
--- NOTE | 2022-10-24 11:09 | ONC.NURNOTE ---
Accompanied pt to 3 mo f/u with Leticia Aldridge PA-C. Pt tolerating Anastrazole well; Leticia to order refills. RTC 3 months, 01/20 @1400.
== END 2023-01-14 23:59 | disposition home or self-care (01) ==
LOC: CCIC 09:46
PROVIDERS: PCP Family Medicine; Visit Provider Physician Assistant
DX: C50.911 Malignant neoplasm of unspecified site of right female breast (principal); Z17.0 Estrogen receptor positive status [ER+]; Z79.811 Long term (current) use of aromatase inhibitors; Z90.13 Acquired absence of bilateral breasts and nipples
CPT/HCPCS: 99202; 99204; 99212; 99214; 99215

== ENCOUNTER 2023-01-06 09:46 | Outpatient (CLI) | payer MEDICARE, SELFPAY | END 2023-01-06 09:47 | disposition home or self-care (01) | LOC: NFLDREF 09:47 | PROVIDERS: PCP Family Medicine; Visit Provider Family Medicine | DX: E78.5 Hyperlipidemia, unspecified (principal); I10 Essential (primary) hypertension | CPT/HCPCS: 80053; 80061 ==

== ENCOUNTER 2023-04-21 13:00 | Outpatient (RCR) | payer MEDICARE, SELFPAY | END 2023-07-19 23:59 | disposition home or self-care (01) | LOC: CCIC 13:00 | PROVIDERS: PCP Family Medicine; Visit Provider Internal Medicine Hematology & Oncology | DX: C50.911 Malignant neoplasm of unspecified site of right female breast (principal); Z17.0 Estrogen receptor positive status [ER+]; Z79.811 Long term (current) use of aromatase inhibitors; R23.2 Flushing; T50.905A Adverse effect of unspecified drugs, medicaments and biological substances, initial encounter; Z90.13 Acquired absence of bilateral breasts and nipples | CPT/HCPCS: 99212; 99214 ==

== ENCOUNTER 2023-06-17 10:15 | Outpatient (RCR) | payer MEDICARE, SELFPAY ==
--- NOTE | 2022-06-20 17:36 | OT.OPLE ---
OT Outpatient Lymphedema Eval OT Outpatient Lymphedema Eval Start: 06/19/22 17:42 Freq: Status: Active Protocol: Document 06/20/22 13:48 AMB (Rec: 06/20/22 17:34 AMB [id number]) E-signed By Deann Lyon, OTR/L, CLT, [employer] OT Outpatient Evaluation Details Type Type Eval Complexity Low OT OP Lymphedema Evaluation Insurance Information Insurance Information Medicare B Current Condition/Medical Diagnosis Referring Provider Dr Mcgraw Treatment Diagnosis Breast Cancer / Lymphedema Surveillance Precautions Lifting Restrictions,Range of Motion Medical Contraindications HTN,CA Other Contraindications Hyperlipidemia, perforated nasal septum, serrated adenoma of colon Current Work Status Current Work Status Retired Subjective Subjective Pt states she has decided to go forward with bilateral mastectomy with SLN biopsy without reconstruction. Surgery will be on 06/27/22. Pt states she is a little nervous but, not too bad Medical History Medical History Obesity,HTN Medical History Comments Pt was recently diagnosed with right breast invasive ductal carcinoma, discovered on a regular screening mammogram. Pt has had prior breast biopsies, one on the right in the and one on the left in the early . Pt states her mother had breast cancer at the age of 64 and is now 102yo living in a care center. Surgical History Surgical History Pt has PMH of RUE RCR x 2 ( 2001 and 2013) and eyelid surgery x 1 3 years ago. Medications Medications See chart Family History Family History of Lymphedema No Living Situation Current Living Situation Home With Spouse Or SO Exercise History Does Patient Exercise Regularly Yes Exercise Comments Pt has a [place] [employer] machine, does not currently use regularly, understands that she needs to increase her exercise levels. Pain Pain No Loss of Function/Strength/Mobility Loss Of Function/Strength/Mobility No Compression History Does Patient Currently Wear Compression No During Daytime Does Patient Currently Wear Compression No At Night Current Swelling (Location/Pitting/Texture) Pitting Scale: 0 = No pitting 1+ Tissue returns to normal almost immediately 2+ Tissue returns after 15-30 seconds 3+ Tissue returns after 1-1/2 minutes 4+ Tissue returns after 2-3 minutes N/A Tissue no longer pits due to induration Tissue texture: Soft or indurated Type of Swelling Post Surgery/Traumatic Edema Assessment Assessment Pt presents pre-operatively for initiation of lymphedema surveillance program. Following her mastectomy with SLN biopsy, pt will be at risk for lymphedema in her RUE / upper quadrant due to LN removal. Pt may need radiation which would add to her risk. Pt will benefit from skilled OT intervention for pt education, monitoring / surveillance in order to provide early detection / intervention to assure best positive outcomes with fewer lymphedema related complications if the need arises. Pt demonstrates good interest and motivation to be an active participant in her care. Pt asked multiple pertinent questions and received satisfactory answers. Pt was given contact info and encouraged to reach out if more questions arise. Problem List Problem List Limited Knowledge of Lymphedema Treatment/Condition /Precautions,Limited Knowledge of Skin Care & Infection Precautions,Significant Risk For Infection For Lymphedema Related Complications Patient Goals Patient Goals 1. Pt will demonstrate a general understanding of the lymphatic system, s/s of lymphedema, treatment of lymphedema, implications of untreated lymphedema, s/s of infection and the correlation of infection related to lymphedema. 3 months 2. Pt will be compliant with quarterly assessments for lymphedema surveillance in order to obtain early intervention with best outcomes if needed. 12 months Treatment Plan Treatment Plan Evaluation,Edema Control, Manual Therapy,Wound Care/Scar Management,Therapeutic Exercise,Therapeutic Activities,Self-Care/Home Management Expected Frequency Quarterly Expected Duration 12 months Certification Certification I Certify That: Therapy Services Provided, Therapy Plan Established, Therapy Plan Reviewed Recertification Information Recertification Information Initial Certification Date 06/20/22 Recertification Due Date 09/19/22 Reasons to Continue Skilled Therapy Pt initiated OT today for 12 month lymphedema surveillance program. Continued Plan of Care and Interventions MT, TA, TE, self care, edema control Provider Signature Shows Agreement With POC & Medical Necessity Physician Comment/Change Comment or Changes Physician NPI Number #
--- NOTE | 2022-06-24 13:14 | PT.OPEX ---
PT [place] Outpatient Eval PT [facility] Outpatient Eval Start: 06/24/22 08:57 Freq: Status: Active Protocol: Document 06/24/22 08:57 ENM (Rec: 06/24/22 12:50 ENM [id number]) E-signed By Apple Whalen, DPT Physical Therapy Outpatient Evaluation Insurance Information Recert Due Date 09/16/22 Insurance Name Medicare B Medical Diagnosis bilateral masectomy Treating Diagnosis impaired posture, decreased shoulder ROM Referring MD Mcgraw Subjective Subjective Patient presents for pre-op appointment prior to bilateral masectomy with SLND 06/27/22. She was diagnosed with right breast invasive ductal carcinoma in May. Found to be ERPR positive, HER2 negative. Plan right now is to do chemo after. She used to go the club 3x a week for swimming. Has a history for previous right rotator cuff repairs. Does have difficulties reaching behind the back at baseline. PMHx: 2 previous right rotator cuff repairs, HTN Pain Comments no pain Current Work Status Retired Objective Other/Pertinent Objective AROM standing: Shoulder flexion L 154 R 140 abduction L 165 R 154 Scaption L 154 R 146 IR L T8 R T11 ER base of skull, with slightly less ER on the R compared to L PROM flexion more tightness on R Posture: flat back posture, scapular protraction Joint mobility: posterior glide of GH more limited on R compared to L inferior glide of GH normal mobility B Scapular control: good scapular engagement in standing Functional Test Performed & Score SPADI: 4/130 pain 1/50 2% disability 3/80 3.75% Assessment Assessment/Impression Patient presents to PT pre- operatively for planned Breast Cancer surgery to include bilateral mastectomy and planned SLNB without reconstruction on 06/27/22. Found to have right breast invasive ductal carcinoma ERPR positive and HER2 negative. Plan is for patient to have chemo as well. Assessment today included baseline UE ROM, postural, and joint mobility measurements which are to be compared to measurements retaken 4 weeks post-surgery. At that time, any reduced movement, decline in function, or postural issues will be addressed with skilled care and new goals will be established. Education was given today regarding post-operative signs of infection, axillary cording, seroma formation, and home program to be performed within the first 3-4 weeks post-operatively focusing on UE mobility within surgical restrictions. Primary Functional Limitations reaching behind the back Plan of Care Rehabilitation Potential Good Physical Therapy Goals Goals pre op 1. Pt demonstrates awareness of post-operative movement restrictions and HEP to facilitate lymphatic regeneration and reduce the risk of seroma formation, axillary web syndrome and lymphedema while ensuring shoulder joint mobility. Coordination/Communication With Referral Source Treatment Plan/Direct Interventions Joint Mobilization,Manual Therapy,Neuromuscular Re-ed, Self-Care/Home Management, Therapeutic Activities, Therapeutic Exercises Frequency/Duration 2x a week for 6 visits, reassessing frequency based off patient progress and medical plan of care Patient Will Be Discharged From Therapy Completion of LTG(s), Independent w/HEP Evaluation Billing Untimed Code Treatment Minutes 16 Complexity Low Certification Information Initial Certification Date 06/24/22 Ending Certification Date 09/16/22 Provider Signature Shows Agreement With POC & Medical Necessity Physician Signature & Date Requested Please Sign/Date Here Physician Comment/Change : Physician NPI Number #
--- NOTE | 2022-10-23 09:45 | OT.OPLDN ---
OT Outpatient Lymphedema Daily Note OT Outpatient Lymphedema Daily Note Start: 06/19/22 17:42 Freq: Status: Active Protocol: Document 10/23/22 08:22 AMB (Rec: 10/23/22 09:44 AMB [id number]) E-signed By Deann Lyon, OTR/L, CLT, IN PROCESSING INSTRUCTOR OT OP Lymphedema Daily/Progress Note Note Type Note Type Daily,Recert/Progress Note Visit Number 3 Insurance Information Insurance Information Medicare B Current Condition/Medical Diagnosis Referring Provider Dr Mcgraw Treatment Diagnosis Breast Cancer / Lymphedema Surveillance Date Of Onset 06/[address] removed from Right Medical Contraindications HTN,CA Other Contraindications Hyperlipidemia, perforated nasal septum, serrated adenoma of colon Subjective Subjective Pt returns for lymphedema surveillance following her mastectomy with LN biopsy x 4 on the RUE, all negative. Initiated Anastrozole in July. Pt feels she is doing well, no concerns about lymphedema. Pt states she has really been watching her skin, sure to moisturize. Pt states she hasn't been very motivated to get back into her exercise routine, generally likes to use her [place] [employer] and swim / exercise at the pool. States she lost both her mother and mother in law in Jul/Aug and it has been stressful, hoping to get back to exercise soon. Circumferential Measurements Upper Extremity Left Upper Extremity MCP 19.5 Palm 20.2 Wrist 17.0 10cm 24.6 20cm 30.5 30cm 34.0 40cm 41.5 Total 187.3 Right Upper Extremity MCP 19.8 Palm 20.4 Wrist 17.0 10cm 24.8 20cm 30.5 30cm 34.5 40cm 41.5 Total 188.5 Treatment Therapeutic Activities Review of risk reduction practices and discussed the importance of regular exercise to reduce risk for lymphedema and other health benefits. Re-assessment of skin and limb circumference. Therapeutic Activity Minutes (minutes) 20 Assessment Pt presents 3 months p/o from B mastectomy for lymphedema surveillance program. Pt does not demonstrate any s/s or concerns for lymphedema. Pt is working on getting back into a regular exercise routine. Pt's skin condition is excellent, incisions are well healed, no adherence. Pt demonstrates full AROM in BUE and 5/5 muscle strength, she does not feel limited in ADLs or IADLs. Problem List Limited Knowledge of Lymphedema Treatment/Condition /Precautions,Limited Knowledge of Skin Care & Infection Precautions,Significant Risk For Infection For Lymphedema Related Complications Patient Goals Patient Goals 1. Pt will demonstrate a general understanding of the lymphatic system, s/s of lymphedema, treatment of lymphedema, implications of untreated lymphedema, s/s of infection and the correlation of infection related to lymphedema. 3 months 2. Pt will be compliant with quarterly assessments for lymphedema surveillance in order to obtain early intervention with best outcomes if needed. 12 months Treatment Plan Treatment Plan Evaluation,Edema Control, Manual Therapy,Wound Care/Scar Management,Therapeutic Exercise,Therapeutic Activities,Self-Care/Home Management Other Treatment Plan Pt will continue with lymphedema surveillance program with re-assessment qu Expected Frequency Quarterly Expected Duration 12 months Expected Duration Comments Re-assess in 3 months. Treatment Minutes Timed Treatment Minutes 20 Total Timed Treatment Minutes 20 Occupational Therapy Billing Units Billing Units Therapeutic Activities 1 Certification Certification I Certify That: Therapy Services Provided, Therapy Plan Established, Therapy Plan Reviewed Recertification Information Recertification Information Initial Certification Date 06/20/22 Recertification Start Date 09/19/22 Recertification Due Date 01/21/23 Reasons to Continue Skilled Therapy Pt is participating in a lymphedema surveillance program and will benefit from continued surveillance to provide early intervention and treatment in the event that she develops lymphedema in order to achieve best outcomes as well as continued pt education on risk reduction practices. Continued Plan of Care and Interventions MT, TA, TE, self care, edema control Provider Signature Shows Agreement With POC & Medical Necessity Physician Comment/Change Comment or Changes Physician NPI Number #
--- NOTE | 2023-03-26 12:54 | OT.OPLDN ---
OT Outpatient Lymphedema Daily Note OT Outpatient Lymphedema Daily Note Start: 06/19/22 17:42 Freq: Status: Active Protocol: Document 03/26/23 09:18 AMB (Rec: 03/26/23 09:55 AMB [id number]) E-signed By Deann Lyon, OTR/L, CLT, PALLIATIVE CARE COORDINATOR OT OP Lymphedema Daily/Progress Note Note Type Note Type Daily,Recert/Progress Note Visit Number [id number] Insurance Information Insurance Information Medicare B Current Condition/Medical Diagnosis Referring Provider Dr Mcgraw Treatment Diagnosis Breast Cancer / Lymphedema Surveillance Date Of Onset 06/27 Precautions Lifting Restrictions,Range of Motion Other Precautions LN removed from Right Medical Contraindications HTN,CA Other Contraindications Hyperlipidemia, perforated nasal septum, serrated adenoma of colon Subjective Subjective Pt continues to do well, she is staying active in her garden, still has not returned to exercising on her [place] [employer], but states she's so busy in the summer, hoping to get back to it in the fall / winter. Pt is preparing for a long road trip to [place], states she and her will be camping, visiting family and making many other stops. Pt denies any concerns for lymphedema, states she monitors daily. Home Program Compliant To Home Program Yes Home Program Specifics Self monitoring, staying active, working on increasing her exercise Circumferential Measurements Upper Extremity Left Upper Extremity MCP 19.2 Palm 20.3 Wrist 16.9 10cm 24.7 20cm 30.4 30cm 34.3 40cm 41.0 Total 186.8 Right Upper Extremity MCP 19.5 Palm 20.2 Wrist 17.0 10cm 25.0 20cm 30.2 30cm 34.5 40cm 41.0 Total 187.4 Treatment Self Care Review of skin care and infection education, review of s/s of lymphedema, s/s of infection and actions if suspecting either. Self Care Activity Minutes (minutes) 7 Therapeutic Activities Review of risk reduction practices and discussed the importance of regular exercise to reduce risk for lymphedema and other health benefits. Re-assessment of skin and limb circumference. Therapeutic Activity Minutes (minutes) 15 Assessment Pt presents 9 months p/o from B mastectomy for lymphedema surveillance program. Pt does not demonstrate any s/s or concerns for lymphedema. Pt continues to work getting back into a regular exercise routine. She has been working outside in her garden, feels she does a lot of walking and UE exercise with tending to garden. Pt's skin condition is excellent, no visible lesions, cuts, or scrapes, no s/s of infection or swelling. BUE limb circumferences have actually reduced by .5cm each since last measure. Pt is participating in a lymphedema surveillance program and will benefit from continued surveillance to provide early intervention and treatment in the event that she develops lymphedema in order to achieve best outcomes as well as continued pt education on risk reduction practices. Problem List Limited Knowledge of Lymphedema Treatment/Condition /Precautions,Limited Knowledge of Skin Care & Infection Precautions,Significant Risk For Infection For Lymphedema Related Complications Patient Goals Patient Goals 1. Pt will demonstrate a general understanding of the lymphatic system, s/s of lymphedema, treatment of lymphedema, implications of untreated lymphedema, s/s of infection and the correlation of infection related to lymphedema. 3 months 2. Pt will be compliant with quarterly assessments for lymphedema surveillance in order to obtain early intervention with best outcomes if needed. 12 months Treatment Plan Treatment Plan Evaluation,Edema Control, Manual Therapy,Wound Care/Scar Management,Therapeutic Exercise,Therapeutic Activities,Self-Care/Home Management Other Treatment Plan Pt will continue with lymphedema surveillance program with re-assessment qu Expected Frequency Quarterly Expected Duration 12 months Expected Duration Comments Re-assess in 3 months. Daily Plan of Care Continue Per POC Treatment Minutes Timed Treatment Minutes 22 Total Timed Treatment Minutes 22 Occupational Therapy Billing Units Billing Units Self Care/Home Management 1 Certification Certification I Certify That: Therapy Services Provided, Therapy Plan Established, Therapy Plan Reviewed Recertification Information Recertification Information Initial Certification Date 06/20/22 Recertification Start Date 01/21/23 Recertification Due Date 04/23/23 Reasons to Continue Skilled Therapy Pt is participating in a lymphedema surveillance program and will benefit from continued surveillance to provide early intervention and treatment in the event that she develops lymphedema in order to achieve best outcomes as well as continued pt education on risk reduction practices. Continued Plan of Care and Interventions MT, TA, TE, self care, edema control Provider Signature Shows Agreement With POC & Medical Necessity Physician Comment/Change Comment or Changes Physician NPI Number #
== END 2023-06-17 12:00 | disposition home or self-care (01) ==
PROVIDERS: PCP Family Medicine; Visit Provider Surgery
DX: I89.0 Lymphedema, not elsewhere classified (principal); Z51.89 Encounter for other specified aftercare
CPT/HCPCS: 97110; 97140; 97161; 97164; 97165; 97530; 97535

== ENCOUNTER 2023-08-28 08:03 | Outpatient (CLI) | payer MEDICARE, SELFPAY | END 2023-08-28 08:04 | disposition home or self-care (01) | LOC: NFLDREF 15:32 | PROVIDERS: PCP Family Medicine; Referring Provider Family Medicine; Visit Provider Family Medicine | DX: E78.2 Mixed hyperlipidemia (principal) | CPT/HCPCS: 80053; 80061 ==

== ENCOUNTER 2023-11-27 12:50 | Outpatient (RCR) | payer MEDICARE, SELFPAY | END 2024-01-20 23:59 | disposition home or self-care (01) | LOC: CCIC 12:50 | PROVIDERS: PCP Family Medicine; Visit Provider Physician Assistant | DX: C50.911 Malignant neoplasm of unspecified site of right female breast (principal); Z17.0 Estrogen receptor positive status [ER+]; Z79.811 Long term (current) use of aromatase inhibitors; R23.2 Flushing; G47.00 Insomnia, unspecified; Z90.13 Acquired absence of bilateral breasts and nipples | CPT/HCPCS: 99212; 99214; G0463 ==

== ENCOUNTER 2023-12-17 10:38 | Outpatient (CLI) | payer MEDICARE, SELFPAY ==
--- OUTSIDE RECORDS SUMMARY | 2023-12-17 10:40 | XMS_ITS | Clinical Summary ---
Author Name Unknown Organization [facility] Address [place], [place] [address] Care Team Providers Care Black Jack Dealer Name Role Phone Otoniel Pichardo MD Primary Care Provider [phone] Allergies No known active allergies Medications Medication Sig Dispensed Refills Start Date End Date Status lisinopril (PRINIVIL; ZESTRIL) 40 mg tablet Take 40 mg by mouth once daily. Active triamterene-hydrochlor othiazide, as half 75-50 mg, (MAXZIDE) 37.5-25 mg tab Take 1 half tablet by mouth every morning. Active Active Problems Problem Noted Date Diagnosed Date Family history of malignant neoplasm of gastrointestinal tract 06/23/2014 Special screening for malignant neoplasms, colon 06/23/2014 Personal history of colonic polyps 06/23/2014 Family History Medical History Relation Name Comments Cancer-colon Brother Relation Name Status Comments Brother Social History Tobacco Use Types Packs/Day Years Used Date Smoking Tobacco: Never Alcohol Use Standard Drinks/Week Comments Yes 0 (1 standard drink = 0.6 oz pur e alcohol) maybe 1-2/wk Sex and Gender Information Value Date Recorded Sex Assigned at Not on file Gender Identity Not on file Sexual Orientation Not on file Obstetrics History Last Filed Vital Signs Vital Sign Reading Time Taken Comments Blood Pressure 115/68 06/23/2014 11:30 AM CDT Pulse 70 06/23/2014 11:30 AM CDT Temperature 36.9 ??C (98.4 ??F) 06/23/2014 1 0:07 AM CDT Respiratory Rate 16 06/23/2014 11:3 0 AM CDT Oxygen Saturation 91% 06/23/2014 11: 30 AM CDT Inhaled Oxygen Concentration - - Weight 92.9 kg (204 lb 12.9 oz) 014 10:07 AM CDT Height 167.6 cm (5' 6) 06/23/2014 10:0 7 AM CDT Body Mass Index 33.06 06/23/2014 10:07 AM CDT Plan of Treatment Health Maintenance Due Date Last Done Comments Tdap 1961 Depression screening for age 12+ 1960 BMI (ht and wt on same day) for age 18+ 1966 Hepatitis C screening for ag e 18-79 1966 Tetanus booster 1968 Lipids for age 45-75 1993 Zoster (shingles) series for age 50+ (1 of 2) 1998 DEXA/DXA scan for age 65+ 2013 Pneumococcal series for age 65+ (1 of 1 - PCV) 2013 Colonoscopy through age 75 06/23/201906/23, 04/15/2011, 04/15/2011, Additional history exists COVID-19 vaccine series ( - 2022-24 season) 2023 Influenza for age 65+ 05/09/2024 Procedures Procedure Name Priority Date/Time Associated Diagnosis Comments SCAN-COLONOSCOPY 06/23/2014 12:0 0 AM CDT from Last 3 Months or Most Recently Relevant to Health Maintenance Results * SCAN-COLONOSCOPY (06/23/2014 12:00 AM CDT) Narrative 06/23/2014 12:00 AM CDT Procedure Note Scanner - 06/23/2014 12:00 AM CDT Scanner OTHER from Last 3 Months or Most Recently Relevant to Health Maintenance Advance Directives * Full Code (Latest Code Status on File) Date Activated Date Inactivated Comments 06/23/2014 9:48 AM 06/23/2014 2:35 PM Care Teams Black Jack Dealer Relationship Specialty Start Date End Date Otoniel Pichardo MD PCP - General Family Practice 06/22/14
[2023-12-19 00:19] LABS: Tissue Transglutaminase Ab,IgA <1.02 FLU (0.00-4.99)
== END 2023-12-17 10:39 | disposition home or self-care (01) ==
LOC: NFLDREF 10:39
PROVIDERS: PCP Family Medicine; Visit Provider Family Medicine
DX: K52.9 Noninfective gastroenteritis and colitis, unspecified (principal)
CPT/HCPCS: 83516

== ENCOUNTER 2024-02-16 15:29 | Outpatient (CLI) | payer MEDICARE, SELFPAY ==
--- OUTSIDE RECORDS SUMMARY | 2024-02-16 15:33 | XMS_ITS | Clinical Summary ---
Author Organization [employer] [facility] Address [place], [place] [address] Care Team Providers Care Lens Blank Gauger Name Role Phone Otoniel Pichardo MD Primary Care Provider [phone] Allergies No known active allergies Medications Medication [...] 9:48 AM 06/23/2014 2:35 PM Care Teams Lens Blank Gauger Relationship Specialty Start Date End Date Otoniel Pichardo MD PCP - General Family Practice 06/22/14
== END 2024-02-16 15:30 | disposition home or self-care (01) ==
LOC: NFLDREF 15:30
PROVIDERS: PCP Family Medicine; Visit Provider Family Medicine
DX: Z01.818 Encounter for other preprocedural examination (principal); I10 Essential (primary) hypertension
CPT/HCPCS: 80048

== ENCOUNTER 2024-05-26 07:54 | Outpatient (CLI) | payer MEDICARE, SELFPAY ==
--- OUTSIDE RECORDS SUMMARY | 2024-05-26 07:56 | XMS_ITS | Clinical Summary ---
Author Organization [facility] Address [place], [place] [address] Care Team Providers Care Ops Analyst Name Role Phone Otoniel Pichardo MD Primary Care Provider [phone] Allergies No known active allergies Medications Medication [...] age 18+ 1966 Hepatitis C screening for age 18-79 1966 Tetanus booster 1968 Zoster (shingles) series for age 50+ (1 of 2) 04/11/19 98 RSV vaccine for adults or pr egnancy (1 - 1-dose 60+ series) 2008 DEXA/DXA scan for age 65+ 2013 Pneumococcal series for age 65+ (1 of 1 - PCV) 013 COVID-19 vaccine series (1 - 2022- season) 4 Influenza for age 65+ 05/09/2024 Advance Directives * Full Code (Latest Code Status on File) Date Activated Date Inactivated Comments 06/23/2014 9:48 AM 06/23/2014 2:35 PM Care Teams Ops Analyst Relationship Specialty Start Date End Date Otoniel Pichardo MD PCP - General Family Practice 06/22/14
--- NOTE | 2024-05-26 08:15 | CRLHL7_ITS ---
For Patients: As a result of the Cures Act, medical imaging exams and procedure reports are released immediately into your electronic medical record. You may view this report before your referring provider. If you have questions, please contact your health care provider. Indication: History of right breast cancer. Bilateral mastectomy. Left axillary lump. Technique: Grayscale and color Doppler ultrasound of the left axillary soft tissues performed. Comparison: Breast MRI 05/16/2022 Findings: Normal left axillary lymph node is present measuring 9 millimeters. No abnormal vascularity. No suspicious lesion. No fluid collection. Impression: No suspicious findings. Dictated by Holger Clayton MD @ 05/26/2024 10:49:29 AM (Electronically Signed)
== END 2024-05-26 07:55 | disposition home or self-care (01) ==
LOC: US 07:54
PROVIDERS: PCP Family Medicine; Visit Provider Physician Assistant
DX: N63.20 Unspecified lump in the left breast, unspecified quadrant (principal); R59.1 Generalized enlarged lymph nodes; C50.911 Malignant neoplasm of unspecified site of right female breast
CPT/HCPCS: 76882

== ENCOUNTER 2024-08-30 07:35 | Outpatient (CLI) | payer MEDICARE, SELFPAY | END 2024-08-30 07:36 | disposition home or self-care (01) | LOC: NFLDREF 08-31 05:18 | PROVIDERS: PCP Family Medicine; Referring Provider Family Medicine; Visit Provider Family Medicine | DX: E78.5 Hyperlipidemia, unspecified (principal); I10 Essential (primary) hypertension | CPT/HCPCS: 80053; 80061 ==

== ENCOUNTER 2024-09-07 08:18 | Outpatient (CLI) | payer MEDICARE, SELFPAY | END 2024-09-07 08:19 | disposition home or self-care (01) | PROVIDERS: PCP Family Medicine; Visit Provider Family Medicine | DX: R73.01 Impaired fasting glucose (principal) | CPT/HCPCS: 82947 ==

== ENCOUNTER 2024-10-13 12:28 | Outpatient (CLI) | payer MEDICARE, SELFPAY | END 2024-10-13 12:29 | disposition home or self-care (01) | LOC: RAD 12:28 | PROVIDERS: PCP Family Medicine; Visit Provider Physician Assistant | DX: Z79.811 Long term (current) use of aromatase inhibitors (principal) | CPT/HCPCS: 77080 ==

== ENCOUNTER 2024-11-11 12:50 | Outpatient (RCR) | payer MEDICARE, SELFPAY ==
--- NOTE | 2024-06-08 12:57 | ONC.NURNOTE ---
Leticia Aldridge PA-C reviewed Ultrasound of left upper extremity and Leticia Aldridge PA-C called pt with those results.
== END 2024-11-13 23:59 | disposition home or self-care (01) ==
LOC: CCIC 12:50
PROVIDERS: PCP Family Medicine; Visit Provider Physician Assistant
DX: C50.911 Malignant neoplasm of unspecified site of right female breast (principal); Z17.0 Estrogen receptor positive status [ER+]; R23.2 Flushing; Z79.811 Long term (current) use of aromatase inhibitors; Z90.13 Acquired absence of bilateral breasts and nipples
CPT/HCPCS: 99214; G0463

== ENCOUNTER 2025-03-16 09:59 | Emergency (ER) | payer MEDICARE, SELFPAY ==
[2025-03-16 10:01] VITALS: BP 151/89; PULSE 72; RESP 18; TEMP 36.4; O2SAT 98; BMI 35.8
--- OUTSIDE RECORDS SUMMARY | 2025-03-16 10:03 | XMS_ITS | Clinical Summary ---
Author Organization [facility] Address [address] [place] [id number] Care Team Providers Care Pumping Station Supervisor Name Role Phone Otoniel Pichardo MD Primary Care Provider [phone] Allergies No known active allergies Medications lisinopril (PRINIVIL; ZESTRIL) 40 mg tablet Take 40 mg by mouth once daily. Active triamterene-hydr ochlorothiazide, as half 75-50 mg, (MAXZIDE) 37.5-25 mg [...] 0.6 oz pur e alcohol) maybe 1-2/wk Comments No Sex and Gender Information Value Date Recorded Sex Assigned at Not on file Legal Sex Female 6:09 AM CLINICAL NURSE EDUCATOR Gender Identity Not on file Sexual Orientation Not on file Obstetrics History Last Filed Vital Signs Vital Sign Reading Time Taken Comments Blood Pressure 115/68 06/23/2014 11:30 AM CDT Pulse 70 06/23/2014 11:30 AM CDT Temperature 36.9 C (98.4 F) 06/23/2014 10:07 AM CDT Respiratory Rate 16 06/23/2014 11:3 0 AM CDT Oxygen Saturation 91% 06/23/2014 11: 30 AM CDT Inhaled Oxygen Concentration - - Weight 92.9 kg (204 lb 12.9 oz) 014 10:07 AM CDT Height 167.6 cm (5' 6) 06/23/2014 10:0 7 AM CDT Body Mass Index 33.06 06/23/2014 10:07 AM CDT Plan of Treatment Health Maintenance Due Date Last Done Comments Tetanus booster 1959 Depression screening for age 12+ 1960 BMI (ht and wt on same day) for age 18+ 1966 Hepatitis C screening for ag e 18-79 1966 Pneumococcal series for age 50+ (1 of 1 - PCV) 1998 Zoster (shingles) series for age 50+ (1 of 2) 1998 DEXA/DXA scan for age 65+ 2013 RSV vaccine for adults or (1 - 1-dose 75+ series) 2023 COVID-19 vaccine series ( - 2023-25 season) 2024 Influenza Vaccine (#1) 2025 Hepatitis B series for 19+ Aged Out N o longer eligible based on patient's age to complete this topic Insurance MEDICARE PART A HB ONLY MEDICARE PART B HB ONLY [place] [place] HB ONLY Advance Directives * Full Code (Latest Code Status on File) Date Activated Date Inactivated Comments 06/23/2014 9:48 AM 06/23/2014 2:35 PM Care Teams Pumping Station Supervisor Relationship Specialty Start Date End Date Otoniel Pichardo MD PCP - General Family Practice 06/22/14
--- NOTE | 2025-03-16 10:16 | CRLHL7_ITS ---
For Patients: As a result of the Cures Act, medical imaging exams and procedure reports are released immediately into your electronic medical record. You may view this report before your referring provider. If you have questions, please contact your health care provider. Indication: Pain after injury Technique: Three views right knee Comparison: None Findings/Impression: Bones: No definite evidence of fracture. Joint spaces: Patellofemoral joint space narrowing with tricompartmental osteophytes consistent with osteoarthritis. Mild chondrocalcinosis. Small knee effusion. Soft tissues: Anterior soft tissue swelling. Dictated by Chris Corbett MD @ 03/16/2025 11:14:43 AM (Electronically Signed)
--- NOTE | 2025-03-16 10:16 | CRLHL7_ITS ---
For Patients: As a result of the Century Cures Act, medical imaging exams and procedure reports are released immediately into your electronic medical record. You may view this report before your referring provider. If you have questions, please contact your health care provider. EXAM: MRI OF THE RIGHT KNEE, WITHOUT CONTRAST CLINICAL INDICATION: Knee pain. Injury. PRIOR SURGERY: None reported. COMPARISON PLAIN FILMS: 16 March 2025. COMPARISON CROSS-SECTIONAL IMAGING STUDIES: None available at time of interpretation. TECHNICAL: Axial, sagittal and coronal T1, PD, PD FS and T2 FS images. FINDINGS: OSSEOUS STRUCTURES: No fracture, marrow edema or marrow replacement process. JOINT SPACE AND CAPSULE: Effusion: Moderately large effusion extends above the field of view and incompletely distended suprapatellar recess. Mildly prominent medial patellar and suprapatellar plica. No significant synovitis. Joint Bodies: None seen. CRUCIATE LIGAMENTS: Anterior Cruciate Ligament: Normal. Posterior Cruciate Ligament: Normal. EXTENSOR MECHANISM: Distal Quadriceps Tendon: Normal. Patellar Tendon: Normal. Medial Patellar Retinaculum and Medial Patellofemoral Ligament: Normal. Lateral Patellar Retinaculum: Normal. Normal patellar alignment. No patella laina. Normal trochlear depth. Normal lateral trochlear inclination. MEDIAL COLLATERAL LIGAMENT AND POSTEROMEDIAL CORNER COMPLEX: Medial Collateral Ligament: Normal. Medial Head of the Gastrocnemius and Semimembranosus Tendons: Normal. LATERAL COLLATERAL LIGAMENT COMPLEX AND POSTEROLATERAL CORNER COMPLEX: Fibular Collateral Ligament: Normal. Distal Biceps Femoris Tendon Complex: Normal. Iliotibial Band: Normal. Popliteus Tendon: Normal. Posterolateral Corner Capsule: Normal. MEDIAL COMPARTMENT: Medial Meniscus: Hazy indistinct shallow tearing blunts the margins of the posterior horn and body. Articular Cartilage: Mildly heterogeneous T2 signal and shallow undulating grade 2 thinning. Small marginal osteophytes. LATERAL COMPARTMENT: Lateral Meniscus: Normal size and morphology without tear. Articular Cartilage: Diffuse grade 2 thinning. Focal grade 3 defect central condyle about 4-5 mm diameter. Small marginal osteophytes. PATELLOFEMORAL COMPARTMENT: Articular Cartilage: Chronic appearing up to grade 4 cartilage loss through the majority of the patella and lateral trochlea with marginal osteophytes. Patchy subchondral edema in the patella. PERIARTICULAR SOFT TISSUES: Popliteal Cyst: No significant popliteal cyst. Periarticular Cysts or Ganglia: None. Bursae: No prepatellar, superficial infrapatellar, deep infrapatellar, pes anserinus or semimembranosus/MCL bursitis. Musculature: No muscle atrophy or muscle edema. Subcutaneous and Soft Tissues: No subcutaneous or soft tissue mass, edema or fluid collection. Neurovascular Structures: Normal. IMPRESSION: 1. No traumatic injury. 2. Moderately large effusion. 3. Fraying at the margins of the medial meniscus. 4. 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 Dictated by Toan Lee MD @ 03/16/2025 11:32:19 AM (Electronically Signed)
--- NOTE | 2025-03-16 10:18 | ED.GENADULT ---
HPI - General Adult General Chief complaint: Extremity Pain/Injury, Lower Stated complaint: R leg pain Time Seen by Provider: 03/16/25 10:00 History of Present Illness HPI narrative: Patient is a 74 year white female who is not on any anticoagulants who about 3 weeks ago was traveling and slipped and injured her knee while getting into a boat. She subsequent was swimming in the colder water and seemed to help the swelling a little bit. It did swell pretty rapidly. She has felt she was getting a little bit better but last night she turned in bed and she had significant swelling again in her knee as well as inability to fully flex and extend. Feels a little bit like it is locked due to the swelling. She has had no history of knee problem. She does have a history of diabetes type 2, hyperlipidemia, hypertension, elevated BMI. Patient her who presents to the ER, they are residents of [place]. Related Data Home Medications ?Medication ?Instructions ?Recorded ?Confirmed multivitamin 1 tab PO DAILY 06/25/22 12/09/24 acetaminophen 325 mg capsule 650 mg PO QID PRN 07/18/22 12/09/24 cholecalciferol (vitamin D3) 50 50 mcg PO QDAY 07/18/22 12/09/24 mcg (2,000 unit) capsule calcium 600 mg (as 1 tab PO BID 10/24/22 12/09/24 carbonate)-vitamin D3 5 mcg (200 unit) tablet (Calcium 600 + D(3)) Previous Rx's ?Medication ?Instructions ?Recorded amlodipine 2.5 mg tablet 2.5 mg PO QDAY #90 tabs 09/07/24 lisinopril 20 mg tablet 20 mg PO QDAY #90 tabs 09/07/24 metoprolol succinate 25 mg 25 mg PO DAILY #90 tabs 09/07/24 tablet,extended release 24 hr pravastatin 20 mg tablet 20 mg PO HS #90 tabs 09/07/24 triamterene 37.5 1 cap PO DAILY #90 caps 09/07/24 mg-hydrochlorothiazide 25 mg capsule anastrozole 1 mg tablet 1 mg PO QDAY #90 tabs 11/11/24 Allergies Allergy/AdvReac Type Severity Reaction Status Date / Time No Known Allergies Allergy Unknown Verified 12/09/24 08:12 Review of Systems Status of ROS: Reports: 6 or more systems reviewed and unremarkable except as noted in History and below PFSH PFSH Medical History Serrated adenoma of colon ?D12.6 - Benign neoplasm of colon, unspecified (ICD-10) Surgical History History of bilateral mastectomy (06/27/22) ?Z90.13 - Acquired absence of bilateral breasts and nipples (ICD-10) History of arthroscopy of right shoulder (11/08/14) ?Z98.890 - Other specified postprocedural states (ICD-10) History of colonoscopy (04/09/19) ?Z98.890 - Other specified postprocedural states (ICD-10) History of appendectomy ?Z90.49 - Acquired absence of other specified parts of digestive tract (ICD-10) Family History Sister Aneurysm Ovarian cancer, Onset Age: 24 Mother Breast cancer, Onset Age: 63 Skin cancer Brother Colorectal cancer, Onset Age: 52 Diabetes High blood pressure Coagulation disorder Father Coronary artery disease Aunt Breast cancer, Onset Age: 48 Social History Narrative: SOCIAL HISTORY: She is and retired. She has 3 children. She is not sexually active. She swims 3 days per week for exercise. HABITS: No tobacco or recreational drug use. Alcohol use is about 2-3 drinks per week. FAMILY HISTORY: Unchanged. Brother with myocardial infarction, bypass surgery in chronic kidney disease awaiting transplant. Mother with breast cancer at 63 and recent stroke. Father with coronary artery disease and myocardial infarction at age 60. He had alcohol issues in his 50s. Sister with aneurysm at age 20. Another sister with ovarian cancer at 24. Brother with bleeding issues. Brother with colorectal cancer at 52. Two brothers with diabetes. Brother with alcohol dependence. Brother with hypertension. Strong family history of breast cancer. Mother is living at age 101. What is your current living situation?: I presently have a place to live Problems where you live: no known problems In the past 12 months, utilities in danger of being shut off: no In past 12 months, lack of transportation kept you from medical appts, meetings, work, or getting things needed for daily living: no In the past 12 mos, have been you worried that your food would run out before you had money to buy more?: never true In the past 12 mos, the food you bought just didn't last and you didn't have money to buy more?: never true Smoking Status: Never smoker Do you use any of these nicotine containing products: None How often do you have a drink containing alcohol: 2-4 times a month Alcohol type: beer How many standard drinks containing alcohol do you have on a typical day: 1 or 2 AUDIT-C Alcohol total score: 2 Non-prescribed substance use: denies use Caffeine: Yes (coffee, 1 1/2 cups/day) How often does anyone, including family, friends and others, physically hurt you: never How often does anyone, including family, friends and others, insult or talk down to you: never How often does anyone, including family, friends and others, threaten you with harm: never How often does anyone, including family, friends and others, scream or curse at you: never Exam Narrative: Exam Narrative: Objective: The patient is vital signs are showing slightly elevated systolic blood pressure, rest her vital signs look within normal limits Alert orient x3 no marked distress Lying comfortably in bed Right knee exam shows an effusion, no marked medial lateral joint line tenderness, negative anterior drawer test. Distal CMS is normal No marked patellar swelling or malalignment. Const: Vital Signs, click to edit/add: Vital Signs - 24 hr 03/16/25 10:01 Temperature 97.5 F L Pulse Rate [Pulse Oximeter] 72 Respiratory Rate 18 Blood Pressure [Le ft Upper Arm] 151/89 H Pulse Oximetry 98 Oxygen Delivery Me thod Room Air Course Vital Signs Vital signs: Initial Vital Signs Temperature 97.5 F L 03/16/25 10:01 Temperature Source Temporal Artery Scan 03/16/25 10:01 Pulse Rate 72 03/16/25 10:01 Respiratory Rate 18 03/16/25 10:01 Blood Pressure 151/89 H 03/16/25 10:01 Blood Pressure Mean 109 H 03/16/25 10:01 Blood Pressure Position Sitting 03/16/25 10:01 Pulse Oximetry 98 03/16/25 10:01 Oxygen Delivery Method Room Air 03/16/25 10:01 Vital Signs Temperature 97.5 F L 03/16/25 10:01 Pulse Rate 72 03/16/25 10:01 Respiratory Rate 18 03/16/25 10:01 Blood Pressure 151/89 H 03/16/25 10:01 Pulse Oximetry 98 03/16/25 10:01 Oxygen Delivery Method Room Air 03/16/25 10:01 Temperature 97.5 F L 03/16/25 10:01 Pulse Rate 72 03/16/25 10:01 Respiratory Rate 18 03/16/25 10:01 Blood Pressure 151/89 H 03/16/25 10:01 Pulse Oximetry 98 03/16/25 10:01 Oxygen Delivery Method Room Air 03/16/25 10:01 Medical Decision Making MDM Narrative Medical decision making narrative: [age] white female 3 weeks status post a knee injury with recurrent swelling and continued pain. Now with knee effusion. I think at this point she needs an x-ray of her knee, she will need a knee immobilizer for home, ice, and Advil or Aleve on a regular basis. This would be for the next few days. All set up to see Orthopedics. I think also given the duration and effusion in her knee an MRI scan would be appropriate to do at this time. Rule out meniscal injury, rule out ligamentous injury. Patient were comfortable this plan. Will have staff set up an appointment with ortho follow-up. Addendum 10:41 a.m.: By my review and read the patient's x-ray shows some calcification of her meniscus, degenerative changes around her patellofemoral sunrise view. She has degenerative joint disease. No obvious fractures noted. I think given the patient's duration of symptoms, and her significant effusion. An MRI would be in order to determine if there is meniscal injury or cartilaginous injury or ligamentous injury. This would be prior to her orthopedic appointment which we set up for the . Knee immobilizer, icing, Advil or Aleve as mention. Follow-up with orthopedics as scheduled. Discharge Plan Discharge Clinical Impression: Injury of knee, right, Effusion of right knee Patient Disposition: Home w/ Parent or Adult Condition: Stable Additional Instructions: Follow up orthopedic appointment is scheduled at [facility] on 03/21 with a 10:30am appointment time. If you have any questions or need to reschedule, please call [phone]. Recommend Tylenol and either Advil or Aleve for swelling. Icing on a regular basis. Knee immobilizer to be worn. May loosen it at night. Follow-up orthopedics as scheduled. [facility] [address] [place] [address] Activity Level: Light activity and Wear Brace Discharge Diet: Diabetic Prescriptions: No Action calcium carbonate-vitamin D3 [Calcium 600 + D(3)] 600 mg-5 mcg (200 unit) tablet 1 tab PO BID anastrozole 1 mg tablet 1 mg PO QDAY Qty: 90 3RF Rx Instructions: Take once daily with or without food. multivitamin Tablet 1 tab PO DAILY acetaminophen 325 mg capsule 650 mg PO QID PRN cholecalciferol (vitamin D3) 50 mcg (2,000 unit) capsule 50 mcg PO QDAY amlodipine 2.5 mg tablet 2.5 mg PO QDAY Qty: 90 3RF lisinopril 20 mg tablet 20 mg PO QDAY Qty: 90 3RF metoprolol succinate 25 mg tablet extended release 24 hr 25 mg PO DAILY Qty: 90 3RF pravastatin 20 mg tablet 20 mg PO HS Qty: 90 3RF triamterene-hydrochlorothiazid 37.5-25 mg capsule 1 cap PO DAILY Qty: 90 3RF Follow Up/Referrals: Otoniel Pichardo MD [Primary Care Provider, Family Practice] Stand Alone Forms: MyHealth Info Instructions
== END 2025-03-16 11:30 | disposition home or self-care (01) ==
PROVIDERS: Emergency Provider Family Medicine; PCP Family Medicine
DX: M25.461 Effusion, right knee (principal); W01.0XXA Fall on same level from slipping, tripping and stumbling without subsequent striking against object, initial encounter; Y93.19 Activity, other involving water and watercraft
CPT/HCPCS: 73562; 73721; 99284

== ENCOUNTER 2025-04-29 16:34 | Outpatient (CLI) | payer MEDICARE, SELFPAY | END 2025-04-29 16:35 | disposition home or self-care (01) | LOC: NFLDREF 05-03 17:39 | PROVIDERS: PCP Family Medicine; Referring Provider Family Medicine; Visit Provider Physician Assistant | DX: N39.0 Urinary tract infection, site not specified (principal); B96.20 Unspecified Escherichia coli [E. coli] as the cause of diseases classified elsewhere | CPT/HCPCS: 87077; 87086; 87186 ==